=== PATIENT | male | born 1995 | race African-American/Black ===

== ENCOUNTER 2017-11-27 00:29 | Emergency (ER) | payer SELFPAY ==
[2017-11-27] MEDS ORDERED: NORMAL SALINE 1000 ML 1,000 ML IV ONE (00:39)
[2017-11-27] MEDS ORDERED: ONDANSETRON HCL INJ/PF 4 MG/2 ML SDV IV ONE (00:39)
[2017-11-27 00:54] LABS: ABSOLUTE EOSINOPHILS # (AUTO) 0.1 10^3/uL (0.0-0.6); ABSOLUTE LYMPHOCYTES (AUTO) 1.9 10^3/uL (0.5-4.7); ABSOLUTE MONOCYTES (AUTO) 0.6 10^3/uL (0.1-1.4); ABSOLUTE NEUT (AUTO) 8.7 10^3/uL (1.7-8.2); BASOPHILS % (AUTO) 0.4 % (0-2); EOSINOPHILS % (AUTO) 0.6 % (0-6); HEMATOCRIT 41.1 % (37.9-51.0); HEMOGLOBIN 13.3 g/dL (13.5-17.0); LYMPHOCYTES % (AUTO) 16.5 % (13-45); MEAN CORPUSCULAR HEMOGLOBIN 27.8 pg (27.0-33.4); MEAN CORPUSCULAR HGB CONC 32.3 g/dL (32.0-36.0); MEAN CORPUSCULAR VOLUME 86 fl (80-97); PLATELET COUNT 322 10^3/uL (150-450); RED BLOOD COUNT 4.77 10^6/uL (4.35-5.55); SEGMENTED NEUTROPHILS % (AUTO) 77.5 % (42-78); TOTAL CELLS COUNTED % (AUTO) 100 %; WHITE BLOOD COUNT 11.2 10^3/uL (4.0-10.5)
[2017-11-27 01:04] LABS: ALCOHOL 127 mg/dL (NONE DETECTED); ANION GAP 15 (5-19); BLOOD UREA NITROGEN 9 mg/dL (7-20); CALCIUM 9.7 mg/dL (8.4-10.2); CARBON DIOXIDE 26 mmol/L (22-30); CHLORIDE 105 mmol/L (98-107); GLUCOSE 106 mg/dL (75-110); POTASSIUM 3.3 mmol/L (3.6-5.0); SODIUM 146.4 mmol/L (137-145)
[2017-11-27 01:22] LABS: URINE AMPHETAMINES SCREEN NEGATIVE; URINE BARBITURATES SCREEN NEGATIVE; URINE BENZODIAZEPINES SCREEN NEGATIVE; URINE COCAINE SCREEN NEGATIVE; URINE MARIJUANA (THC) SCREEN NEGATIVE; URINE METHADONE SCREEN NEGATIVE; URINE PHENCYCLIDINE SCREEN NEGATIVE
--- NOTE | 2017-11-27 02:06 | ER Document Report ---
ED General - General Chief Complaint: ETOH Abuse Stated Complaint: POSSIBLE ETOH Time Seen by Provider: 11/27/17 00:35 Notes: Patient is a 22-year-old male who presents with altered mental status. He was seen draining large amounts of alcohol earlier in the day. Upon arrival patient 's awake and alert but a little bit intoxicated appearing. He admits to drinking alcohol. He denies any drugs. Paramedics also mentioned that the police were trying to arrest him because he had drugs found on him. He denies any pain. Denies any recent fevers or illness. He has no other complaints at this time. Past Medical History - Social History Smoking Status: Never Smoker Frequency of alcohol use: Occasional Drug Abuse: None Family History: Reviewed & Not Pertinent Review of Systems - Review of Systems Notes: My Normal Review Basic REVIEW OF SYSTEMS: CONSTITUTIONAL : Denies fever, chills, or sweats. Denies recent illness. EENT: Denies eye, ear, throat, or mouth pain or symptoms. Denies nasal or sinus congestion. CARDIOVASCULAR: Denies chest pain. RESPIRATORY: Denies cough, cold, or chest congestion. Denies shortness of breath, difficulty breathing, or wheezing. GASTROINTESTINAL: Denies abdominal pain. Denies nausea, vomiting, or diarrhea. MUSCULOSKELETAL: Denies neck or back pain or joint pain or swelling. SKIN: Denies rash or skin lesions. NEUROLOGICAL: Some reported altered mental status earlier which since resolved. Denies headache. Denies weakness or paralysis or loss of use of either side. Denies problems with gait or speech. Denies sensory or motor loss. ALL OTHER SYSTEMS REVIEWED AND NEGATIVE. Physical Exam - Notes Notes: General Appearance: Well nourished, awake but a little bit somnolent., cooperative, no acute distress, no obvious discomfort. Positive alcohol. Vitals: reviewed, See vital signs table. Head: no swelling or tenderness to the head Eyes: PERRL, EOMI, Conjuctiva clear Mouth: No decreasd moisture Lungs: No wheezing, No rales, No rhonci, No accessory muscle use, good air exchange bilaterally. Heart: Normal rate, Regular rythm, No murmur, no rub Abdomen: Normal BS, soft, No rigidity, No abdominal tenderness, No guarding, no rebound, no abdominal masses, no organomegaly Extremities: strength 5/5 in all extremities, good pulses in all extremities, no swelling or tenderness in the extremities, no edema. Skin: warm, dry, appropriate color, no rash Neuro: speech clear, oriented x 3, responds appropriately to questions. Cranial nerves II through XII are intact. Distal sensation intact. Good strength in all 4 extremities. Course - Re-evaluation Re-evalutation: 11/27/17 02:06 On reevaluation patient is awake and alert and acting appropriately now. She is wearing a rest of his blood work to come back. Patient says he feels much improved. 11/27/17 02:48 Left or left the patient's room his girlfriend showed up. Immediately after his girlfriend showed up the patient was fully awake and alert. There apparently having an argument. Since then he has been up and walk around the ER without any signs of gait instability. This time is limited evaluation is unremarkable. His alcohol level is only a little bit elevated. This time is safe to be discharged home. To return to the ER if he has vomiting, recurrence of any confusion, or if he feels unwell. Dictation of this chart was performed using voice recognition software; therefore, there may be some unintended grammatical errors. - Laboratory Result Diagrams: 11/27/17 00:10 11/27/17 00:10 Laboratory results interpreted by me: 11/27/17 11/27/17 00:10 00:10 WBC 11.2 H Hgb 13.3 L Absolute Neutrophils 8.7 H Sodium 146.4 H Potassium 3.3 L Discharge - Discharge Clinical Impression: Alcohol abuse Condition: Good Disposition: HOME, SELF-CARE Additional Instructions: Please do not drink large amounts of alcohol or do drugs. please return to the ER if you have vomiting or feel unwell.
[2017-11-27 03:48] VITALS: BP 125/53
== END 2017-11-27 03:30 | disposition home or self-care (01) ==
LOC: ER 00:29
DX: F10.10 Alcohol abuse, uncomplicated (principal); R40.0 Somnolence
CPT/HCPCS: 99284; 96361; 96374; 36415; 80307 ×2; 83735; 85025; 80048; J2405; J7030